=== PATIENT | female | born 1965 | race Caucasian/White ===

== ENCOUNTER 2019-12-12 10:44 | Emergency (ER) | payer OTHER ==
[2019-12-12 11:32] VITALS: BP 152/77
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
== END 2019-12-12 14:30 | disposition home or self-care (01) ==
LOC: ED 10:44
DX: S16.1XXA Strain of muscle, fascia and tendon at neck level, initial encounter (principal); Z87.442 Personal history of urinary calculi; Z98.890 Other specified postprocedural states; Z79.899 Other long term (current) drug therapy; V49.59XA Passenger injured in collision with other motor vehicles in traffic accident, initial encounter; Y93.89 Activity, other specified; Y92.410 Unspecified street and highway as the place of occurrence of the external cause; Y99.8 Other external cause status
CPT/HCPCS: 72040; 72100